=== PATIENT | female | born 1990 | race Caucasian/White ===

== ENCOUNTER 2021-11-25 08:56 | Outpatient (RCR) | payer OTHER, SELFPAY ==
[2021-11-25] MEDS: RHO(D) IMMUNE GLOBULIN 300 MCG/2 ML SYRINGE IM (15:09)
== END 2022-02-23 23:59 | disposition home or self-care (01) ==
LOC: ANHLAB 08:56
PROVIDERS: PCP Family Medicine; Visit Provider Obstetrics & Gynecology
DX: Z29.13 Encounter for prophylactic Rho(D) immune globulin (principal); O36.0190 Maternal care for anti-D [Rh] antibodies, unspecified trimester, not applicable or unspecified; Z3A.00 Weeks of gestation of pregnancy not specified
CPT/HCPCS: 36415; 85461; 90384; 96372; J2790

== ENCOUNTER 2022-01-25 21:59 | Inpatient (IN) | payer OTHER, SELFPAY ==
[2022-01-25 22:11] VITALS: RESP 18; TEMP 36.2
[2022-01-25 22:52] VITALS: BP 128/78; PULSE 70
[2022-01-25 22:52] LABS: Basophils Percent Auto 0.3 % (0.2-1.2); Eosinophils Absolute Auto 0.1 K/mm3 (0-0.3); Eosinophils Percent Auto 1.2 % (0-4.4); Hematocrit 36.7 % (37.0-47.0); Hemoglobin 11.9 g/dL (12.0-15.0); Immature Granulocyte Absolute 0.04 K/mm3 (0.00-0.031); Immature Granulocyte Percent A 0.4 % (0-0.5); Lymphocytes Absolute Auto 2.27 K/mm3 (0.9-3.2); Mean Corpuscular HGB Conc 32.4 g/dl (32-36); Mean Corpuscular Volume 83.2 fl (80-100); Mean Platelet Volume 11.4 fl (7.4-10.4); Monocytes Absolute Auto 0.6 K/mm3 (0.1-0.6); Monocytes Percent Auto 5.8 % (2.6-8.5); Neutrophils Absolute Auto 6.5 K/mm3 (1.3-6.7); Neutrophils Percent Auto 68.3 % (45.5-73.1); Platelet Count Result 195 k/mm3 (150-375); Red Blood Count 4.41 M/mm3 (4.2-5.4); Red Cell Distribution Width 13.7 % (11.5-14.5); White Blood Count 9.5 K/mm3 (4.5-10.0)
[2022-01-25 23:04] VITALS: BMI 26.6
[2022-01-25 23:21] VITALS: RESP 18; TEMP 36.4
[2022-01-25 23:30] VITALS: BP 117/67; PULSE 68
[2022-01-25 23:45] VITALS: BP 111/72; PULSE 58
[2022-01-26] VITALS (110 sets, daily range): BP systolic 77–142; BP diastolic 46–99; PULSE 53–99; RESP 18; TEMP 36.2–36.9; O2SAT 98–100
[2022-01-26] MEDS: LACTATED RINGERS 1,000 ML 125 ML IV CONT ×3 (04:53→10:42)
[2022-01-26] MEDS: OXYTOCIN 30 UNITS/NS 500 ML 30 UNITS/500 ML BAG IV CONT (04:54)
--- NOTE | 2022-01-26 06:18 | WPDANESEPP ---
Anes - Eval Pre Procedure Procedure: LAbor epidural Date/Time: 01/26/22 06:18 Surgeon: Nico Preop Diagnosis: Abd pain with contractions Pre Op Diagnosis: leaking Patient Data Age: 32 Gender: F Height: 1.65 m Weight: 72.8 kg Last Vital Signs Temp 97.6 F 01/26/22 05:31 Pulse 60 01/26/22 06:15 Resp 18 01/26/22 05:31 BP 105/76 01/26/22 06:15 O2 Del Method Room Air 01/25/22 23:00 Allergies Allergy/AdvReac Type Severity Reaction Status Date / Time No Known Allergies Allergy Unverified 02/26/19 13:28 Home Medications Medication Instructions Recorded Confirmed Type prenat.vits,gregoria,bau-aknj-khsfu 1 tablet PO HS 01/02/22 01/02/22 History Laboratory Tests 01/25/22 01/25/22 01/25/22 22:44 22:44 22:44 WBC 9.5 K/mm3 K/mm3 (4.5-10.0) RBC 4.41 M/mm3 M/mm3 (4.2-5.4) Hgb 11.9 g/dL L g/dL (12.0-15.0) Hct 36.7 % L % (37.0-47.0) MCV 83.2 fl fl (80-100) MCH 27.0 pg pg (26-34) MCHC 32.4 g/dl g/dl (32-36) RDW 13.7 % % (11.5-14.5) Plt Count 195 k/mm3 k/mm3 (150-375) MPV 11.4 fl H fl (7.4-10.4) Immature Gran % (Auto) 0.4 % % (0-0.5) Neut % (Auto) 68.3 % % (45.5-73.1) Lymph % (Auto) 24.0 % % (18.3-44.2) Polk % (Auto) 5.8 % % (2.6-8.5) Eos % (Auto) 1.2 % % (0-4.4) Baso % (Auto) 0.3 % % (0.2-1.2) Lymph # (Auto) 2.27 K/mm3 K/mm3 (0.9-3.2) Polk # (Auto) 0.6 K/mm3 K/mm3 (0.1-0.6) Eos # (Auto) 0.1 K/mm3 K/mm3 (0-0.3) Baso # (Auto) 0.0 K/mm3 K/mm3 (0.0-0.1) Abs Immat Gran (auto) 0.04 K/mm3 H K/mm3 (0.00-0.031) Absolute Neuts (auto) 6.5 K/mm3 K/mm3 (1.3-6.7) Absolute Nucleated RBC 0.0 K/mm3 K/mm3 (0.0-0.012) Nucleated RBC % 0.0 % % (0.0-0.2) RPR Pending Blood Type O Negative Antibody Screen Positive Antibody Identification Passive Due to RH Imm Glob Antigen Identification Cancelled CAROL, IgG Interpret Not Performed CAROL, Poly Interpret Neg CAROL, Complement Interp Not Performed Patient hx anesthesia problems: none Family hx anesthesia problems: none Results Review: All pre-operative results and documents have been reviewed as part of the pre-operative evaluation. [facility] Past Medical History Medical History Overweight (BMI 25.0-29.9) and not yet delivered Surgical History Surgical History (Updated 01/26/22 @ 06:20 by Ector Rivera CRNA) History of tonsillectomy Family History Family History (Updated 01/02/22 @ 12:37 by Viri Zhong RN) Grandparent Gout Social History Social History Smoking status: Never smoker Second hand tobacco smoke exposure: No Substance use: never Spiritual care concerns: No Exam Day of Procedure 01/26/22 06:18 Patient weight: overweight Airway: Mallampati scale class III
--- NOTE | 2022-01-26 08:40 | WPDOBADMIT ---
Obstetrics - Admit Note Admission Note: record reviewed. Additions to the history and/or subsequent changes in the physical findings follow. 32 y/o at 39 3/7 weeks here after gush of fluid last evening. SROM confirmed here on L&D. Now receiving augmentation of labor with oxytocin. GBS neg. AVSS NST reactive TOCO: contractions irregularly ABD soft, nontender, gravid, vertex EXT nontender Cervix 3/50/-2. AROM forebag, clear fluid. Vertex. A: IUP at 39 3/7 weeks with SROM. P: Augmenting labor. Anticipate .
[2022-01-26 10:19] LABS: Rapid Plasma Reagin Non-Reactive (NonReactive)
[2022-01-26] MEDS: ONDANSETRON INJ 4 MG/2 ML VIAL IV PUSH (12:12)
--- NOTE | 2022-01-26 13:15 | PM.OBPNLAB ---
Pain Control Date/time seen: 01/26/22 13:15 Comfortable with epidural. AVSS NST reactive TOCO: contractions irregularly Cervix /-. IUPC placed. Continue labor.
[2022-01-26] MEDS: AMPICILLIN 2 GM/NS 100 ML 2 GM/100 ML BAG IVPB (13:47)
--- NOTE | 2022-01-26 16:48 | PM.OBPRVD ---
OB - Delivery Note Procedure Delivery date: 01/26/22 Procedure: Induction method: None Delivery augmentation: Pitocin Delivery monitor: External FHT, External Uterine and Internal Uterine Route of delivery: Laceration Description: Perineal - 2nd Degree Delivery repair: vicryl (3-0) Specimen: Yes (cord blood) Quantitative Blood Loss (ml): 120 Anesthesia type: Epidural Disposition: PACU Complications: None Narrative: 32 y/o at 39 3/7 weeks gestation who presented to the hospital after a gush of fluid. SROM confirmed. Oxytocin was subsequently administered intravenously for labor augmentation. Amniotomy of a forebag was performed with return of clear fluid. She received an epidural for pain control. She was given ampicillin after 18 hours of ruptured membranes. Her labor progressed and her cervix dilated completely. She pushed with good effort and delivered the 's head to the perineum, followed by the body. The nose and mouth were bulb suctioned. After a delay, the cord was clamped and cut. The was handed off the field. Cord blood was collected. The placenta delivered spontaneously and was grossly normal in appearance. The usual 3 vessel cord was noted. A second degree midline perineal laceration was sustained. This was reapproximated using 3 0 Vicryl in the usual layered fashion. Excellent hemostasis resulted as did excellent reapproximation of the normal anatomy. Needle and instrument counts were correct. The patient was taken to recovery room in stable condition. The went to the nursery in stable condition. I was present and scrubbed for the entire delivery. Baby Date of : 01/26/22 Time of : 16:24 Weeks of gestation at delivery: 39 Infant gender: Female Weight (pounds): 8 Weight (ounces): 6 presentation: vertex position: Left Occiput Anterior Placenta delivery description: Spontaneous and Normal Configuration Cord Vessel Description: 3 Vessels and Delayed Cord Clamping score one minute: 9 score five minutes: 9
--- NOTE | 2022-01-26 16:51 | PM.OBDSVD ---
DS: Admitting Diagnosis Discharge Date 01/27/22 Admitting Diagnosis IUP at 39 3/7 weeks SROM DS: Discharge Diagnosis Discharge Diagnosis (1) (normal spontaneous vaginal delivery): Code(s): O80 - Encounter for full-term uncomplicated delivery Status: Acute OB - DS: Summary OB Procedures : None OB Procedures Intrapartum: Spontaneous Vag Delivery OB Procedures: : None and RHo (D) lg Time Spent with Patient Time attestation: Total time spent providing and/or coordinating discharge services: DS: Data Data Completed and Pending Labs on day of discharge: Labs from last 24 hours 01/25/22 01/25/22 01/25/22 22:44 22:44 22:44 WBC 9.5 RBC 4.41 Hgb 11.9 L Hct 36.7 L MCV 83.2 MCH 27.0 MCHC 32.4 RDW 13.7 Plt Count 195 MPV 11.4 H Immature Gran % (Auto) 0.4 Neut % (Auto) 68.3 Lymph % (Auto) 24.0 Yancey % (Auto) 5.8 Eos % (Auto) 1.2 Baso % (Auto) 0.3 Lymph # (Auto) 2.27 Yancey # (Auto) 0.6 Eos # (Auto) 0.1 Baso # (Auto) 0.0 Abs Immat Gran (auto) 0.04 H Absolute Neuts (auto) 6.5 Absolute Nucleated RBC 0.0 Nucleated RBC % 0.0 RPR Non-reactive Blood Type O Negative Antibody Screen Positive Antibody Identification Passive Due to RH Imm Glob Antigen Identification Cancelled CAROL, IgG Interpret Not Performed CAROL, Poly Interpret Neg CAROL, Complement Interp Not Performed Discharge Plan Discharge Attending physician on discharge: Alirio Walsh Discharging Clinician: Alirio Walsh Patient Disposition: Home, Self-Care Activity: pelvic rest Diet: regular Discharge Instructions: Call or return if temperature above 100.4? F, increased abdominal pain, increased vaginal bleeding or any new problems. Stand Alone Forms: General Discharge Information Follow-up/Referrals: Alirio Walsh MD [Physician] - 6 Weeks Discharge Medications: New ibuprofen 600 mg tablet 600 mg PO Q6H PRN (Reason: cramps) Qty: 30 0RF Continued #2 Tablet 1 tablet PO HS Date of admission: 07/13/22 21:59 Primary Care Provider: Nata,Colette Admitting Provider: Alirio Walsh Attending physician on admission: Alirio Walsh Condition: Stable
[2022-01-26] MEDS: OXYTOCIN 30 UNITS/NS 500 ML 30 UNITS/500 ML BAG 125 UNITS IV CONT (16:54)
--- NOTE | 2022-01-26 19:33 | ADMGEN ---
This patient, Frank Chawla, was admitted to OB 2nd Floor Room 280-00. Patient/family oriented to hospital policies and general routines including ID bracelet, bed and alarms, visiting hours, pain management, procedures, bathroom and other care routines, personal items, smoking policy, room service/diet, and visiting hours. Information on how to activate the Rapid Response Team has been discussed. Patient/Family are encouraged to report perceived risks to care and to ask questions if they do not understand what they are told or what they should do.
[2022-01-26] MEDS: WITCH HAZEL 40 PADS 1 PAD TOPICAL (20:59)
[2022-01-26] MEDS: BENZOCAINE 20% AER SPR (*SP) 56 GM CAN 1 SPRAY TOPICAL (20:59)
[2022-01-26] MEDS: IBUPROFEN 600 MG TABLET PO (21:27)
[2022-01-26] MEDS: ACETAMINOPHEN 325 MG TABLET 650 MG PO (21:27)
[2022-01-26] MEDS: LANOLIN (LANSINOH) 7.5 GM CREAM 1 APPLIC TOPICAL (21:28)
--- NOTE | 2022-01-27 | PC.NURSE ---
Returned to room with . Patient asleep in bed. Assessment and vitals not completed at this time.
[2022-01-27 03:30] VITALS: BP 105/58; PULSE 59; RESP 18; TEMP 36.5
[2022-01-27] MEDS: ACETAMINOPHEN 325 MG TABLET 650 MG PO ×3 (03:50→19:55)
[2022-01-27] MEDS: IBUPROFEN 600 MG TABLET PO ×3 (03:51→19:55)
[2022-01-27 05:32] LABS: Hemoglobin 12.4 g/dL (12.0-15.0)
[2022-01-27 07:55] VITALS: BP 108/67; PULSE 57; RESP 18; TEMP 36.5; O2SAT 99
[2022-01-27 08:00] VITALS: PULSE 57; RESP 16; O2SAT 99
[2022-01-27] MEDS: MULTIVIT/MIN/PREN/FOL AC/IRON TABLET 1 TAB PO (09:56)
[2022-01-27] MEDS: DOCUSATE SODIUM 100 MG CAPSULE PO (09:57)
--- NOTE | 2022-01-27 10:47 | WPDANLDPN2 ---
Anes-Prog Note L&D Date/Time: 01/27/22 10:47 Neuro status: Neuro function grossly intact. Vital Signs: Last Vital Signs Temp 36.5 C 01/27/22 07:55 Pulse 57 L 01/27/22 07:55 Resp 18 01/27/22 07:55 BP 108/67 01/27/22 07:55 Pulse Ox 99 01/27/22 07:55 O2 Del Method Room Air 01/27/22 02:58 Pain score (VAS): 0 I/O: Intake & Output 01/26/22 01/27/22 01/27/22 23:59 07:59 15:59 Output Total 170 Balance -170 Patient feedback: Patient satisfied with anesthetic care.
[2022-01-27 12:04] VITALS: BP 113/70; PULSE 59; RESP 16; TEMP 36.9; O2SAT 100
--- NOTE | 2022-01-27 12:14 | PC.NURSE ---
Patient was given the opportunity to view the discharge video Mother & Baby Care, The First Two Weeks and to ask questions. Patient declined viewing the video and has been given the mother/baby guide for home reference.
--- NOTE | 2022-01-27 12:28 | PM.OBPNVD ---
OB - PN: Subj Subjective Date/time seen: 01/27/22 12:28 Narrative: Pain OK. Would like to go home. OB - PN: Obj Data Labs CBC & Chem 7: 01/27/22 03:32 Labs: Laboratory Results - last 24 hr 01/27/22 01/27/22 03:32 03:32 Hgb 12.4 Hct 38.0 Blood Type O Negative Antibody Screen Positive Antibody Identification Passive Due to RH Imm Glob Antigen Identification TNP CAROL, IgG Interpret Not Performed CAROL, Poly Interpret Negative CAROL, Complement Interp Not Performed Screen Negative Baby's Blood Type O pos Baby's CAROL Positive Doses of RhIg Required 1 OB - PN A/P Assessment and Plan (1) (normal spontaneous vaginal delivery): Code(s): O80 - Encounter for full-term uncomplicated delivery Status: Acute Plan Comments: A: PPD#1, doing well. P: Home to f/u 6 weeks. Exam Psych: Other: AVSS ABD soft, nontender, fundus firm EXT nontender
[2022-01-27] MEDS: RHO(D) IMMUNE GLOBULIN 300 MCG/2 ML SYRINGE IM (13:57)
--- NOTE | 2022-01-27 14:35 | PC.NURSE ---
0879 - Mother is sleeping. Offered assistance later. RN has availability to assist patient and Primary RN as needed.
[2022-01-27 18:30] VITALS: BP 126/77; PULSE 56; RESP 18; TEMP 36.4
--- NOTE | 2022-01-27 19:55 | PC.NURSE ---
Visiting in Nursery.
--- NOTE | 2022-01-27 20:30 | PC.NURSE ---
Returned to room from Nursery.
[2022-01-28] MEDS: ACETAMINOPHEN 325 MG TABLET 650 MG PO (05:41)
[2022-01-28] MEDS: IBUPROFEN 600 MG TABLET PO (05:41)
--- NOTE | 2022-01-28 06:00 | PC.NURSE ---
Visiting in Nursery.
--- NOTE | 2022-01-28 06:20 | PC.NURSE ---
Returned from visiting in nursery.
[2022-01-28] MEDS: DOCUSATE SODIUM 100 MG CAPSULE PO (07:42)
[2022-01-28] MEDS: MULTIVIT/MIN/PREN/FOL AC/IRON TABLET 1 TAB PO (07:42)
[2022-01-28 08:00] VITALS: BP 138/80; PULSE 72; RESP 16; TEMP 36.6; O2SAT 99
--- NOTE | 2022-01-28 10:03 | PC.NURSE ---
0930-Patient discharged; no f/u appointment needed; baby transferred to [facility] on 01/28/22.
== END 2022-01-28 09:47 | disposition home or self-care (01) | DRG 807 ==
LOC: ANHLDR 01-26 16:53 → ANHOB2 01-26 19:38
PROVIDERS: Admitting Provider Obstetrics & Gynecology; PCP Family Medicine; Visit Provider Obstetrics & Gynecology
DX: O70.1 Second degree perineal laceration during delivery (principal); Z37.0 Single live birth; Z3A.39 39 weeks gestation of pregnancy
CPT/HCPCS: 36415; 85014; 85018; 85025; 85461; 86592; 86850; 86880; 86900; 86901; 86902; 90384; A9270; J0290; J2405; J2590; J2790; J2795; J7120